=== PATIENT | male | born 2000 | race Caucasian/White ===

== ENCOUNTER 2021-07-29 23:00 | Emergency (ER) | payer BC ==
[2021-07-29 23:09] VITALS: BP 134/82; PULSE 103; TEMP 99.4; BMI 19.2
[2021-07-30] MEDS ORDERED: SODIUM CHLORIDE 0.9% 500 ML INFUS.BAG IV ONE (00:24)
[2021-07-30 01:18] LABS: HEMATOCRIT 41.7 % (35.4-49); HEMOGLOBIN 13.7 GM/dL (11.7-16.9); MCH 23.9 pg (25.7-33.7); MCHC 32.9 g/dl (32.0-35.9); MEAN CELL VOLUME 72.8 fl (80-96); PLATELET COUNT 334 10^3/uL (134-434); RBC 5.74 M/mm3 (4.00-5.60); RDW 13.7 % (11.9-15.9); WHITE BLOOD COUNT 12.1 K/mm3 (4.0-10.0)
[2021-07-30 01:35] LABS: CALCIUM 9.4 mg/dL (8.5-10.1)
[2021-07-30 01:36] LABS: ALBUMIN 3.9 g/dl (3.4-5.0); BLOOD UREA NITROGEN 11.5 mg/dL (7-18)
[2021-07-30 01:39] LABS: CREATININE 0.8 mg/dL (0.55-1.3)
[2021-07-30 01:40] LABS: BILIRUBIN,TOTAL 0.4 mg/dL (0.2-1); TOT PROT 8.8 g/dl (6.4-8.2)
[2021-07-30] MEDS ORDERED: BENZOCAINE/MENTH/CETYLPYRD CL 1 EACH LOZENGE MM ONE (02:38)
[2021-07-30 02:43] LABS: BASO % 0.2 % (0-2.0); LYMPH % 17.2 % (8-40); MONO % 10.8 % (3.8-10.2); NEUT % 69.8 % (42.8-82.8)
== END 2021-07-30 02:43 | disposition home or self-care (01) ==
LOC: JER 23:00
DX: J02.9 Acute pharyngitis, unspecified (principal)
CPT/HCPCS: 36415; 80053; 85025; 85027; 86664; 86665; 87651; 99284-25